=== PATIENT | male | born 1980 | race Asian ===

== ENCOUNTER → 2023-04-25 09:30 | Outpatient (CLI) | payer OTHER, MEDICAID, SELFPAY ==
[2023-04-25 12:14] LABS: Urine N gonorrhoeae NOT DETECTED
[2023-04-25 13:04] LABS: Urine Chlamydia NOT DETECTED
== END ==
PROVIDERS: PCP Nurse Practitioner Family; Visit Provider Nurse Practitioner Family
DX: Z72.51 High risk heterosexual behavior (principal)
CPT/HCPCS: 87491; 87591

== ENCOUNTER → 2023-04-25 09:52 | Outpatient (CLI) | payer OTHER, MEDICAID, SELFPAY ==
[2023-04-26 07:42] LABS: HSV 2 IGG AB < 0.91 index (0.00-0.90); HSV1IGG > 62.20 index (0.00-0.90)
[2023-04-26 08:45] LABS: RPR Screen Non Reactive (Non Reactive)
[2023-04-27 17:23] LABS: Hepatitis B Surface Antigen NEGATIVE s/c (NEGATIVE)
[2023-04-27 17:38] LABS: HIV 1 & 2 Ab/Ag 4th Gen Combo NEGATIVE (NEGATIVE); Hep C Virus Ab w/Reflex Quant NEGATIVE s/c (NEGATIVE)
== END ==
PROVIDERS: PCP Nurse Practitioner Family; Referring Provider Nurse Practitioner Family; Visit Provider Nurse Practitioner Family
DX: R30.0 Dysuria (principal); Z72.51 High risk heterosexual behavior
CPT/HCPCS: 36415; 86592; 86695; 86696; 86803; 87340; 87389; 87491; 87591

== ENCOUNTER → 2024-06-28 08:45 | Outpatient (CLI) | payer OTHER, MEDICAID, SELFPAY ==
--- NOTE | 2024-06-28 08:46 | DI.MRI.S_ITS ---
PROCEDURE: MR SHOULDER LT WO CON INDICATIONS: ACUTE PAIN OF LEFT SHOULDER TECHNIQUE: Noncontrast oblique coronal T2 fast spin echo with fat saturation, oblique sagittal T1 spin echo and T2 fast spin echo with fat saturation, axial T1 spin echo and T2 fast spin echo with fat saturation through the shoulder. COMPARISON: None. FINDINGS: Image quality: Excellent. Abnormal appearance of the glenoid labrum with irregularity predominantly superiorly and posteriorly which likely represents superior labrum anterior-posterior tear. Abnormal increased T2 weighted signal/thickening suggest tear of the superior and middle glenohumeral ligaments. Abnormal increased T2 weighted signal bone edema in the posterior aspect of the humeral head suggests there was an anterior dislocation-reduction at the glenohumeral joint with associated mild Hill-Sachs deformity of the posterior aspect of the humeral head. Increased T2 weighted signal/thickening of the distal subscapularis tendon suggest partial tear without retraction. Mild increased T2 weighted signal/thickening of the distal supraspinatus tendon suggests partial tear without retraction. Moderate abnormal increased T2 weighted signal and irregularity of the short head of the biceps suggests near full-thickness tear at its attachment to the coracoid. Edema within the coracoid may be reactive to the injury although subtle avulsion fracture could have this appearance. Mild increased T2 weighted signal of the long head of the biceps tendon without gross full-thickness tear. Rotator cuff: The subscapularis and teres minor muscles and tendons appear within normal limits without gross abnormal signal. Sagittal images demonstrate no MR evidence of muscle atrophy. Bones and bursae: Mild degenerative changes of the acromioclavicular joint with joint space narrowing and subchondral edema small osteophytes. The acromion demonstrates laterally downsloping anatomy. IMPRESSION: Consistent with the reported history of trauma, fall, posttraumatic changes of the shoulder as discussed above most notably with suspected SLAP tear of the labrum, tear of the short head of the biceps with edema in the coracoid, and tears of the rotator cuff most notably distal subscapularis and supraspinatus tendons. Bone edema in the posterior aspect of the humeral head suggest prior anterior dislocation/reduction with Hill-Sachs deformity. Other findings as above. Follow-up suggested. Dictated by: Nasir Lang M.D. on 06/30/2024 at 9:37 Approved by: Nasir Lang M.D. on 06/30/2024 at 10:21
== END ==
LOC: MRI 08:45
PROVIDERS: PCP Nurse Practitioner Family; Referring Provider Family Medicine; Visit Provider Family Medicine
DX: M25.512 Pain in left shoulder (principal)
CPT/HCPCS: 73221

== ENCOUNTER 2025-02-10 08:15 | Day surgery (SDC) | payer OTHER, SELFPAY ==
[2025-02-10] MEDS: LACTATED RINGERS 1,000 ML 42 ML IV (08:30)
[2025-02-10 08:39] VITALS: BP 124/77; PULSE 95; RESP 17; TEMP 36.4; O2SAT 100
--- NOTE | 2025-02-10 09:32 | P.HP_ITS ---
History of Present Illness History of Present Illness Chief complaint: [facility] – [place] Narrative: 44-year-old male with family history of colon cancer and personal history of polyps. FOR[facility]LY [facility] Social History Smoking Status: Former smoker alcohol intake: current Meds Home Medications and Allergies Allergies Allergy/AdvReac Type Severity Reaction Status Date / Time No Known Drug Allergies Allergy Verified 02/10/25 08:28 Review of Systems Review of Systems Narrative: Comprehensive review of systems negative to direct questioning. Exam Vital Signs (past 8 hours): - 02/10/25 08:39 Temperature 97.6 F Pulse Rate 95 H Respiratory Rate 17 Blood Pressure 124/77 Pulse Oximetry 100 Oxygen Delivery Method Room Air Oxygen Delivery Method Room Air Narrative Exam Narrative: In general this is a well-nourished well-developed male alert and oriented x3 in no acute distress. Head is normocephalic and atraumatic. Neck is supple. Back is without CVA or spinous process tenderness. Lungs are clear to auscultation. Chest is symmetric nontender with normal inspiratory and expiratory excursion. Heart has a regular rate and rhythm with no murmur or gallop. Abdomen is soft nontender with normal bowel sounds. Neurological exam is grossly nonfocal. Extremities manifests full range of motion. Assessment & Plan Assessment and plan (1) Family history of colon cancer: Status: Acute Plan I have recommended colonoscopy. Alternatives, risks and benefits were discussed in detail. Questions were answered. Patient desires to proceed as I have outlined. Time-Based Coding :: [TOTAL MINUTES] spent with patient and on the chart (including review of chart, obtaining history, exam, reviewing outside data, placing orders, documenting exam and treatment plan, and counseling patient) on [DATE]. [employer] Document charge(s): Yes
--- NOTE | 2025-02-10 10:06 | PM.OP.1 ---
Operative Date/Time/Diagnoses Date of procedure: 02/10/25 Time of procedure: 09:30 Pre-op diagnosis: family histor Post-op diagnosis: same Procedure & Clinicians Procedure: colonoscopy Same procedure as scheduled: Yes Surgeon: Jerardo Gordon Click Yes if Unassisted: Yes Anesthesia Type: MAC +/- Operative Notes Findings: normal colon. No polyps. Closure Type: not applicable Estimated Blood Loss (mL): 0 Procedure in detail: after obtaining informed consent properly identifying the patient the patient was transported to the operating room was placed on the table in the left lateral decubitus position. IV sedation was administered and when an adequate level sedation had been achieved the procedure commenced. A 2 m flexible fiberoptic Olympus colonoscope was passed transanally into the rectum and clear around the cecum under direct endoscopic vision. Prep was adequate. Exam was performed retrograde. Cecum and ascending colon were without evidence of mucosal abnormality. There were no polyps, flat adenomata, AVMs or ulcerations. Hepatic flexure transverse colon and splenic flexure were similarly without evidence of mucosal abnormality. Descending colon was normal in appearance without polyp or other mucosal abnormality. Sigmoid colon was unremarkable in appearance as well. There were no polyps or diverticuli. Rectum was normal as the scope was withdrawn. The patient was transported to PACU having tolerated the procedure well. Complications: none Post-operative Condition: stable Disposition: PACU Plan for aftercare: Discharged home
[2025-02-10 10:08] VITALS: BP 91/58; PULSE 72; RESP 17; TEMP 36.6; O2SAT 96
[2025-02-10 10:13] VITALS: BP 88/53; PULSE 62; RESP 17; O2SAT 96
[2025-02-10 10:18] VITALS: BP 86/54; PULSE 61; RESP 17; O2SAT 96
[2025-02-10 10:23] VITALS: BP 86/52; PULSE 57; RESP 17; O2SAT 96
[2025-02-10 10:28] VITALS: BP 90/51; PULSE 71; RESP 18; TEMP 36.6; O2SAT 96
== END 2025-02-10 10:51 | disposition home or self-care (01) ==
PROVIDERS: PCP Family Medicine; Referring Provider Surgery; Visit Provider Surgery
PROC: 0DJD8ZZ Inspection of Lower Intestinal Tract, Via Natural or Artificial Opening Endoscopic (ICD-10-PCS; CPT 45378; principal; 2025-02-10 09:15)
DX: Z12.11 Encounter for screening for malignant neoplasm of colon (principal); Z80.0 Family history of malignant neoplasm of digestive organs; Z87.891 Personal history of nicotine dependence
CPT/HCPCS: 45378; J2704